=== PATIENT | male | born 1940 | race Caucasian/White ===

== ENCOUNTER 2018-05-21 05:54 | Inpatient (IN) | payer MEDICARE ==
[2018-05-21] MEDS ORDERED: Pantoprazole 40 MG VIAL ONE (06:28)
[2018-05-21 06:52] LABS: #Basophils 0.3 thou/uL (0.0-0.2); #Eosinphils 0.1 thou/uL (0.0-0.7); #Lymphocytes 0.8 thou/uL (1.20-3.40); #Monocytes 1.2 thou/uL (0.11-0.59); #Neutrophils 14.7 thou/uL (1.40-6.50); %Basophils 1.9 % (0.0-1.0); %Eosinophils 0.3 % (0.0-10.0); %Lymphocytes 4.8 % (21.0-51.0); %Monocytes 6.9 % (0.0-10.0); %Neutrophils 86.2 % (42.0-75.0); Mean Corpuscular HGB CONC 30.3 g/dL (32.0-36.0); Mean Corpuscular Hemoglobin 28.2 pg (27.0-31.0); Mean Platelet Volume 10.5 fL (7.4-10.4); Platelet Count 167 thou/uL (130-400); RBC Distribution Width 14.8 % (11.5-14.5); Red Blood Cell (RBC) Count 3.88 mill/uL (4.70-6.10); White Blood Cell (WBC) Count 17.1 thou/uL (4.8-10.8)
[2018-05-21] MEDS ORDERED: EPINEPHrine 1 MG/10 ML Abboject SYRINGE ONE (07:00)
[2018-05-21] MEDS ORDERED: Lidocaine 2% PF 100 mg/5 ml Syringe ONE (07:00)
[2018-05-21] MEDS ORDERED: Sodium Bicarb 50 MEQ/50 ML Abboject 8.4% SYRINGE ONE (07:00)
[2018-05-21] MEDS ORDERED: Calcium Chloride 1 GM/10 ML Abboject SYRINGE ONE (07:00)
[2018-05-21 07:05] LABS: INR-International Normal Ratio 1.3; PTT 32.3 SEC (22.9-36.1); Prothrombin Time 16.5 SEC (12.0-14.7)
[2018-05-21 07:08] LABS: ALT (SGPT) 22 U/L (8-55); AST (SGOT) 39 U/L (5-34); Alkaline Phosphatase 70 U/L (40-150); Anion Gap 25 mmol/L (10-20); BUN (Urea Nitrogen) 90 mg/dL (8.4-25.7); Bilirubin, Total 0.3 mg/dL (0.2-1.2); Calc. Creatinine Clearance 0 mL/min (70-130); Calcium 8.3 mg/dL (7.8-10.44); Carbon Dioxide 15 mmol/L (23-31); Chloride 113 mmol/L (98-107); Estimated GFR-MDRD 24; Glucose 91 mg/dL (83-110); Lipase 4 U/L (8-78); Potassium 4.6 mmol/L (3.5-5.1); Sodium 148 mmol/L (136-145)
[2018-05-21] MEDS ORDERED: Cepastat Lozenges 1 LOZ PO PRN (07:50)
[2018-05-21] MEDS ORDERED: Sodium Chloride 0.65% Nasal 44 ML BOT EA NARE PRN (07:50)
[2018-05-21] MEDS ORDERED: Diabetic Tussin 200 MG/10 ML UDCUP PO PRN (07:50)
[2018-05-21] MEDS ORDERED: Ondansetron ODT 4 MG TAB SL PRN (07:50)
[2018-05-21] MEDS ORDERED: Eucerin (Mineral Oil/Petrolatum,White) 30 gm Jar TOP PRN (07:50)
[2018-05-21] MEDS ORDERED: Acetaminophen 325 MG TAB PO PRN (07:50)
[2018-05-21] MEDS ORDERED: Loratadine 10 MG TAB PO PRN (07:50)
[2018-05-21] MEDS ORDERED: hydrALAZINE 20 MG/ML VIAL SLOW IVP PRN (07:50)
[2018-05-21] MEDS ORDERED: Artificial Tears 18 DROP/0.9 ML EA EYE PRN (07:50)
[2018-05-21] MEDS ORDERED: [UNRECOGNIZED DRUG - OTHER] IVPB PRN ×2 (07:50→09:02)
[2018-05-21] MEDS ORDERED: Ondansetron PF 4 MG/2 ML Vial IVP PRN (07:50)
[2018-05-21] MEDS ORDERED: Acetaminophen 650 MG Suppository PR PRN (07:50)
[2018-05-21] MEDS ORDERED: Bisacodyl 10 MG SUPP PR PRN (07:50)
[2018-05-21] MEDS ORDERED: Dextrose 5 %-0.45 % NaCl 1,000 ML IV SCH (08:00)
--- NOTE | 2018-05-21 08:29 | CT ---
CT ABDOMEN NONCONTRAST CT PELVIS NONCONTRAST: (urolithiasis protocol) DATE: 05/21/2018. TIME: 7:58 a.m. HISTORY: A 78-year-old male with generalized abdominal pain. COMPARISON: None. TECHNIQUE: IV injection of iodinated contrast media: none Oral contrast media: none FINDINGS: Other than for urolithiasis, the lack of IV and oral contrast limits the evaluation. There is a small patchy focal alveolar infiltrate in the superior segment of the left upper lobe, onl y partially imaged, suspicious for pneumonia. Questionable similar infiltrate in the contralateral r ight lower lobe superior segment. Stomach is very distended with large air fluid level in nondilated ascending colon. Nondilated fluid -filled small bowel loops with air fluid levels. No gross evidence of colonic diverticulitis. No ca lculus identified in the urinary bladder, ureters, or kidneys No hydronephrosis. No abdominal aorti c aneurysm. Normal retrocecal appendix. Atrophic pancreas. No adrenal nodule. No hepatosplenomega ly. There are at least 2 low-attenuation lesions in the right lobe of the liver dome. The larger of the two is approximately 1.5 cm. They are too small to definitively characterize, but they may repr esent cysts. No pneumoperitoneum or ascites identified. IMPRESSION: 1. No urolithiasis or obstructive uropathy. 2. Gastric distention. 3. Fluid-filled, nondilated colon and small intestine. Possibilities include gastroenteritis and il eus. 4. Suspicious for bilateral lower lobe pneumonia. CHLOE Mello POS: JENNIFER
[2018-05-21] MEDS ORDERED: Famotidine/PF 20 mg/2ml Vial SLOW IVP SCH (09:00)
[2018-05-21] MEDS ORDERED: Piperacillin/Tazobactam 2.25 GM in Sodium Chloride 0.9% 100 ML IVPB SCH (09:00)
[2018-05-21] MEDS ORDERED: Magnesium 2 GM/50 ML BAG (IN WATER) ONE (09:26)
[2018-05-21] MEDS ORDERED: EPINEPHrine 1 MG, Admixture Fee 1 EACH in Dextrose 5% in Water 250 ML IVPB SCH (09:45)
--- NOTE | 2018-05-21 10:37 | HP ---
PRIMARY CARE PHYSICIAN: Mima Urbina MD REASON FOR ADMISSION: Acute GI bleed and severe sepsis. HISTORY OF PRESENT ILLNESS: A 78-year-old male, who has underlying Alzheimer's dementia and advanced Parkinson's disease. He lives at [facility]. He has [id number] DNR there. The patient was brought to ER. At that time, he was not able to provide any history. He was encephalopathic. As per emergency room physician, this patient had coffee-ground vomiting last night and subsequently he was having black tarry stool. When he came to ER, he was hypotensive. He had lactic acidosis and leukocytosis as well as acute kidney failure. CT abdomen showed gastric distention, fluid-filled dilated colon and small intestine. His stool for guaiac was positive. We started giving him fluid. In the emergency room, the patient became more altered and he was hypotensive, and he had a code blue. Unfortunately, we tried several times to the patient's listed phone number in our hospital to all family members and finally we were able to reach one of family member in [facility] with a number [phone] and discussed with him about situation. This patient has [id number] DNR at shelter, but we were not able to verify his code status, that is why we have to initiate code process as per ACLS and he agreed with that. He was trying to reach his , who is the main medical power of immigration attorney and we also tried on her home number as well as cell number listed in our hospital, but unfortunately we were not able to reach her, so we initiated code process based on ACLS protocol. We did give him several rounds of epinephrine, atropine, sodium bicarbonate, calcium gluconate as well as he required 2 times defibrillator. After 15 to 20 minutes, he had one time pulse, which was an undetermined rhythm. During this period, the patient also required intubation and central line. The patient was also given magnesium sulfate. Unfortunately, the patient went back again in asystole and we tried again CPR, but he was not making. His pupil was dilated. He did not have any pulse and he did not have any respiration. At that point, we decided to stop code because it will be more futile to continue that. The patient's niece came up and we explained to her, and she told us that he has very poor quality of life and she agreed with stopping code. At this point, the patient is in the emergency room. was pronounced and body will be released. The patient's medical power of immigration attorney will decide whether they need any autopsy or we can give him certificate. REVIEW OF SYSTEMS: All review of systems unable to review with the patient because of encephalopathy. ALLERGIES: NO KNOWN DRUG ALLERGIES. CURRENT HOME MEDICATIONS: 1. Depakote 125 mg b.i.d. and 250 mg daily. 2. Aricept 1 tablet daily. 3. Coenzyme Q10 daily. 4. Azilect daily. 5. Mirapex 0.75 mg daily. This medication is not able to verify yet because the list is sent from shelter. PAST MEDICAL HISTORY: Advanced Parkinson's disease, dementia, colon cancer, hypertension, and chronic anemia. PAST SURGICAL HISTORY: Brain tumor surgery. PAST PSYCHIATRIC HISTORY: Unable to review at this point. SOCIAL HISTORY: The patient is from [facility]. No further history obtained. FAMILY HISTORY: Unable to verify any family history because of encephalopathy. EMERGENCY ROOM COURSE: The patient was given IV fluid and we did ACLS protocol, CPR process and during that process, the patient was given several rounds of atropine, epinephrine, sodium bicarbonate, calcium gluconate, blood transfusion, fluid and DC shock. PHYSICAL EXAMINATION: VITAL SIGNS: Initially, the patient blood pressure was 91/48, temperature 98.2, saturation 97%, pulse 87, respiratory rate 24, and weight 68 kg. GENERAL: On admission, the patient was encephalopathic and hypotensive. NECK: Supple. No JVD. No thyromegaly. LUNGS: Grossly clear to auscultation without any rhonchi or rales. CARDIAC: S1, S2 regular. Tachycardia. Soft systolic murmur. No gallop. ABDOMEN: Soft. Bowel sounds present. EXTREMITIES: No edema. NEUROLOGIC: Unable to assess because of encephalopathy. After this patient had code blue and I have attended code blue bedside and run code blue with the patient, we checked periodically pulse and the pulse was not palpable, and we did a complete code blue as per ACLS protocol. One time pulse came back, but again left and now finally the patient was pulseless, respiration less and BP less. IMPRESSION: 1. Acute gastrointestinal bleed. 2. Acute hemorrhagic shock. 3. Acute pulseless electrical activity with asystole, status post unsuccessful resuscitation. 4. Acute kidney failure. 5. Metabolic acidosis secondary to lactic acidosis. 6. Encephalopathy. 7. Acute blood loss anemia. 8. Sepsis with acute organ dysfunction. 9. Gastroenteritis with ileus. 10. Advanced Parkinson's disease with dementia. PLAN: Please see my HPI for further plan, which we did in our hospital. Unfortunately, the patient had unsuccessful resuscitation and the patient is , and body is going to be released for versus autopsy depending upon medical power of immigration attorney. Only one family member show up so far and we have explained that the patient is , and other main decision maker is still not able to be reachable. Whenever they come, at that time we will explain and decide about body release. Total time spent providing critical care to this patient in the emergency room more than 45 minutes. Job ID: [id number]
--- NOTE | 2018-05-21 13:06 | DIS ---
DATE OF ADMISSION: 05/21/2018 DATE OF DISCHARGE: SUMMARY: Please see my HPI for further details just dictated earlier. Primary cause of ; acute GI bleed, acute hemorrhagic shock, acute pulseless electrical activity with asystole, acute kidney failure, metabolic acidosis, metabolic and septic encephalopathy, acute blood loss anemia, sepsis with acute organ dysfunction, gastroenteritis with ileus. CONTRIBUTING DIAGNOSES: Advanced Parkinson disease, dementia, and paroxysmal atrial fibrillation. Family member decided not to go for autopsy and they wanted to take him to [place] . The patient's medical power of criminal defense attorney, the patient's sister arrived and discussed about hospital course. Job ID: [id number]
[2018-05-21] MEDS ORDERED: Vancomycin HCl 1 GM in Premix Bag 1 BAG IVPB SCH (15:00)
--- NOTE | 2018-05-25 23:17 | EKG ---
Test Reason : GI Blood Pressure : / mmHG Vent. Rate : 084 BPM Atrial Rate : 084 BPM P-R Int : 156 ms QRS Dur : 108 ms QT Int : 362 ms P-R-T Axes : 036 -46 -22 degrees QTc Int : 427 ms Sinus rhythm with Premature atrial complexes Incomplete right bundle branch block Left anterior fascicular block Nonspecific T wave abnormality Abnormal ECG Confirmed by FAIZAN OCHOA ([id number]), movie editor FLAVIO GARLAND ([id number]) on 05/25/2018 11:17:33 PM Referred By: Confirmed By:FAIZAN OCHOA
== END 2018-05-21 09:49 | disposition expired | DRG 871 ==
LOC: ERS 05:54 → ERHOLD 07:36
PROVIDERS: ADMIT Internal Medicine; ATTEND Internal Medicine
PROC: 5A12012 Performance of Cardiac Output, Single, Manual (ICD-10-PCS; principal; 2018-05-21)
PROC: 30233N1 Transfusion of Nonautologous Red Blood Cells into Peripheral Vein, Percutaneous Approach (ICD-10-PCS; 2018-05-21)
PROC: 3E033XZ Introduction of Vasopressor into Peripheral Vein, Percutaneous Approach (ICD-10-PCS; 2018-05-21)
PROC: 06HM33Z Insertion of Infusion Device into Right Femoral Vein, Percutaneous Approach (ICD-10-PCS; 2018-05-21)
PROC: 5A2204Z Restoration of Cardiac Rhythm, Single (ICD-10-PCS; 2018-05-21)
PROC: 0BH17EZ Insertion of Endotracheal Airway into Trachea, Via Natural or Artificial Opening (ICD-10-PCS; 2018-05-21)
PROC: 5A1935Z Respiratory Ventilation, Less than 24 Consecutive Hours (ICD-10-PCS; 2018-05-21)
DX: A41.9 Sepsis, unspecified organism (principal); R65.21 Severe sepsis with septic shock; G93.41 Metabolic encephalopathy; K56.7 Ileus, unspecified; D62 Acute posthemorrhagic anemia; K92.2 Gastrointestinal hemorrhage, unspecified; N17.9 Acute kidney failure, unspecified; E87.2 Acidosis; I47.2 Ventricular tachycardia; G20 Parkinson's disease; F02.80 Dementia in other diseases classified elsewhere, unspecified severity, without behavioral disturbance, psychotic disturbance, mood disturbance, and anxiety; I10 Essential (primary) hypertension; I48.0 Paroxysmal atrial fibrillation; Z66 Do not resuscitate; Z85.038 Personal history of other malignant neoplasm of large intestine; R57.8 Other shock
CPT/HCPCS: 36415; 36416; 36430; 74176; 80053; 82274; 83605; 83690; 85025; 85610; 85730; 86850; 86900; 86901; 87040; 87149; 93005; C9113; J0171; J2001; J2543; J7050; J7070; P9016